=== PATIENT | female | born 1975 | race Hispanic/Latino ===

== ENCOUNTER 2019-12-05 13:41 | Emergency (ER) | payer OTHER ==
--- NOTE | 2019-12-05 14:35 | RAD REPORT ---
EXAM DESCRIPTION: RAD - Chest Single View - 12/05/2019 2:27 pm CLINICAL HISTORY: CHEST PAIN TECHNIQUE: AP portable chest image was obtained 12/05/2019 2:27 pm . FINDINGS: Lungs are clear. Heart and vasculature are normal. No measurable pleural effusion and no p neumothorax. No acute bony abnormality seen. No acute aortic findings suspected. IMPRESSION: No acute cardiopulmonary process.
[2019-12-05 14:56] LABS: Absolute Lymphocytes (CBC) 1.9 K/uL (0.7-4.9); Basophils % 0.4 % (0-1.3); Hematocrit 37.4 % (36.0-45.0); Lymphocytes % 21.4 % (15.3-44.8); MPV 8.5 fL (7.6-11.3); RBC Red Blood Cell Count 4.29 M/uL (3.86-4.86)
[2019-12-05 14:57] LABS: Protime INR 1.07
[2019-12-05 15:17] LABS: ALT/SGPT 33 U/L (12-78); AST/SGOT 9 U/L (15-37); Albumin 3.4 g/dL (3.4-5.0); Alkaline Phosphatase 95 U/L (45-117); BUN Blood Urea Nitrogen 15 mg/dL (7-18); Bicarbonate 29 mmol/L (21-32); Bilirubin Direct < 0.1 mg/dL (0-0.2); Bilirubin Total 0.3 mg/dL (0.2-1.0); Glucose Level 109 mg/dL (74-106); NT PRO-BNP 48 pg/mL (<125); Potassium 3.5 mmol/L (3.5-5.1); Protein, Total 7.8 g/dL (6.4-8.2); Sodium Level 143 mmol/L (136-145); Troponin (Emerg Dept Use Only) < 0.02 ng/mL (0.0-0.045)
[2019-12-05] MEDS ORDERED: ASPIRIN 81 MG CHEWABLE TABLET ONE (15:17)
[2019-12-05] MEDS ORDERED: LORazepam 2 MG/ML VIAL ONE (15:19)
--- NOTE | 2019-12-05 18:02 | ER ---
Nurse's Notes [facility] Name: Mag Donald Age: 44 yrs Sex: Female : 1975 Arrival Date: 12/05/2019 Time: 13:44 Bed 14 Private MD: Diagnosis: Other chest pain Presentation: 12/04 13:46 Chief complaint: Patient states: Chest pressure, anxiety and excessive crying that ss began yesterday evening. Pt recently from her boyfriend and is down here visiting her daughter who just had a baby and she is supposed to go back home tomorrow. Coronavirus screen: The patient has NOT traveled to a country currently being monitored by the [facility] within the last 14 days. Proceed with normal triage procedures. Ebola Screen: Patient denies exposure to infectious person. Patient denies travel to an Ebola-affected area in the 21 days before illness onset. Initial Sepsis Screen: Does the patient meet any 2 criteria? No. Patient's initial sepsis screen is negative. Does the patient have a suspected source of infection? No. Patient's initial sepsis screen is negative. Risk Assessment: Do you want to hurt yourself or someone else? Patient reports no desire to harm self or others. 13:46 Method Of Arrival: Ambulatory ss 13:46 Acuity: CHRIS 3 ss Historical: - Allergies: 14:29 No Known Allergies; ss - Home Meds: 14:29 Lexapro [Active]; BP medication [Active]; ss - PMHx: 14:29 Anxiety; Depression; Hypertension; ss - PSHx: 14:29 ; elbow; Hysterectomy; Cholecystectomy; ss - Immunization history:: Adult Immunizations up to date. - Social history:: Smoking status: Patient denies any tobacco usage or history of. Screenin:31 Abuse screen: Denies threats or abuse. Denies injuries from another. Nutritional ss screening: No deficits noted. Tuberculosis screening: Never had TB. Fall Risk None identified. Assessment: 13:46 General: Appears distressed, uncomfortable, Behavior is cooperative, anxious, crying, ss Denies fever, feeling ill, fatigue, chills. Pain: Complains of pain in chest Pain does not radiate. Pain currently is 7 out of 10 on a pain scale. Quality of pain is described as pressure, Pain began yesterday evening comes and goes in severity Is continuous, Aggravated by anxiety. Neuro: Level of Consciousness is awake, alert, obeys commands, Oriented to person, place, time, situation, Speech is normal, Facial symmetry appears normal. Cardiovascular: Pulses are palpable in right radial artery and left radial artery. Respiratory: Breath sounds are clear bilaterally. Denies cough, shortness of breath pain with respiration, pain with cough, pain with movement. GI: Patient currently denies abdominal pain, diarrhea, nausea, vomiting. : No signs and/or symptoms were reported regarding the genitourinary system. EENT: Nares are clear Oral mucosa is moist. Derm: Skin is intact, is healthy with good turgor, is fragile, Skin is pink, warm \T\ dry. normal. 15:00 Reassessment: Patient appears in no apparent distress at this time. Pt is resting at this time, eyes closed, respirations remain even and unlabored. 16:00 Reassessment: Patient appears in no apparent distress at this time. Patient and/or ss family updated on plan of care and expected duration. Pain level reassessed. Patient is alert, oriented x 3, equal unlabored respirations, skin warm/dry/pink. Patient states feeling better. Patient states symptoms have improved. Vital Signs: 13:46 BP 130 / 81; Pulse 102; Resp 22; Temp 97.6(TE); Pulse Ox 98% on R/A; Weight 97.52 kg; Height 5 ft. 2 in. (157.48 cm); Pain 6/10; 15:05 BP 115 / 78; Pulse 82; Resp 17; Temp 97.8(TE); Pulse Ox 90% on R/A; 5 15:49 BP 109 / 68 LA; Pulse 87; Resp 14; Pulse Ox 93% on R/A; ss 15:49 BP 118 / 78 LA; Pulse 83; ss 18:18 BP 129 / 87; Pulse 84; Resp 16; Pulse Ox 95% on R/A; Pain 3/10; ss 13:46 Body Mass Index 39.32 (97.52 kg, 157.48 cm) ED Course: 13:44 Patient arrived in ED. mr 13:46 No provider procedures requiring assistance completed. 13:48 Lee Bates PA is PHCP. cp 13:48 Jose Abreu MD is Attending Physician. cp 14:14 Eliza Jeffries, RN is Primary Nurse. ss 14:27 Triage completed. ss 14:28 XRAY Chest (1 view) In Process Unspecified. EDMS 14:29 Arm band placed on right wrist. ss 14:30 Inserted saline lock: 22 gauge in right antecubital area, using aseptic technique. ss Blood collected. 14:31 Patient has correct armband on for positive identification. Placed in gown. Bed in low ss position. Call light in reach. Side rails up X 1. embalmer assistant on. Pulse ox on. NIBP on. 14:31 Patient maintains SpO2 saturation greater than 95% on room air. ss 15:04 EKG done, by ED staff, reviewed by Jose Abreu MD. tc 18:29 IV discontinued, intact, bleeding controlled, No redness/swelling at site. Pressure ss dressing applied. Administered Medications: 15:18 Drug: Aspirin Chewable Tablet 324 mg Route: PO; ss 17:53 Follow up: Response: No adverse reaction ss 15:19 Drug: Ativan 0.5 mg Route: IVP; Site: right antecubital; ss 17:53 Follow up: Response: No adverse reaction; Anxiety decreased ss Outcome: 18:01 Discharge ordered by MD. cp 18:29 Discharged to home ambulatory, with family. ss 18:29 Condition: improved 18:29 Discharge instructions given to patient, family, Instructed on discharge instructions, follow up and referral plans. medication usage, Demonstrated understanding of instructions, follow-up care, medications, Prescriptions given X 1. 18:29 Patient left the ED. ss Signatures: Dispatcher [employer] [facility] Terrie Najera mr Eliza Jeffries, RN RN Brittney Gold, comb winder EKG Ttc Lee Bates PA PA cp Martinez, Maria 5
--- NOTE | 2019-12-05 18:03 | EDPHYS ---
Physician Documentation [facility] Name: Mag Donald Age: 44 yrs Sex: Female : 1975 Arrival Date: 12/05/2019 Time: 13:44 Bed 14 Private MD: ED Physician Jose Abreu HPI: 12/04 13:55 This 44 yrs old Female presents to ER via Ambulatory with complaints of Chest cp Pain. 13:55 The patient or guardian reports chest pain that is located primarily in the anterior cp chest wall, left. 13:55 Onset: last night. The pain does not radiate. cp 13:55 The chest pain is described as a pressure. cp 13:55 Duration: The patient or guardian reports a single episode, that is still ongoing, and cp unchanged. Historical: - Allergies: 14:29 No Known Allergies; ss - Home Meds: 14:29 Lexapro [Active]; BP medication [Active]; ss - PMHx: 14:29 Anxiety; Depression; Hypertension; ss - PSHx: 14:29 ; elbow; Hysterectomy; Cholecystectomy; ss - Immunization history:: Adult Immunizations up to date. - Social history:: Smoking status: Patient denies any tobacco usage or history of. ROS: 14:00 Constitutional: Negative for body aches, chills, fever, poor PO intake. cp 14:00 Eyes: Negative for injury, pain, redness, and discharge. cp 14:00 ENT: Negative for drainage from ear(s), ear pain, sore throat, difficulty swallowing, difficulty handling secretions. 14:00 Cardiovascular: Positive for chest pain, of the left upper chest, Negative for edema, palpitations. 14:00 Respiratory: Negative for cough, shortness of breath, wheezing. 14:00 Abdomen/GI: Negative for abdominal pain, nausea, vomiting, and diarrhea, black/tarry stool, rectal bleeding. 14:00 Back: Negative for radiated pain. 14:00 Skin: Negative for rash. 14:00 Neuro: Negative for altered mental status, dizziness, headache, syncope, weakness. 14:00 All other systems are negative. Exam: 14:10 Constitutional: The patient appears in no acute distress, alert, awake, cp non-diaphoretic, non-toxic, well developed, well nourished. 14:10 Head/Face: Normocephalic, atraumatic. cp 15:05 ECG was reviewed by the Attending Physician. cp 17:54 ECG was reviewed by the Attending Physician. cp Vital Signs: 13:46 BP 130 / 81; Pulse 102; Resp 22; Temp 97.6(TE); Pulse Ox 98% on R/A; Weight 97.52 kg; ss Height 5 ft. 2 in. (157.48 cm); Pain 6/10; 15:05 BP 115 / 78; Pulse 82; Resp 17; Temp 97.8(TE); Pulse Ox 90% on R/A; mh5 15:49 BP 109 / 68 LA; Pulse 87; Resp 14; Pulse Ox 93% on R/A; ss 15:49 BP 118 / 78 LA; Pulse 83; ss 18:18 BP 129 / 87; Pulse 84; Resp 16; Pulse Ox 95% on R/A; Pain 3/10; ss 13:46 Body Mass Index 39.32 (97.52 kg, 157.48 cm) ss MDM: 13:58 Patient medically screened. cp 18:01 The patient was given aspirin in the Emergency Department. cp 18:01 Data reviewed: vital signs, nurses notes, lab test result(s), EKG, radiologic studies, cp plain films, and as a result, I will discharge patient. Test interpretation: by ED physician or midlevel provider: ECG. 12/04 13:49 Order name: Basic Metabolic Panel; Complete Time: 15:19 cp 12/04 15:20 Interpretation: Normal except: CL 109; GLUC 109; GFR 65. cp 12/04 13:49 Order name: CBC with Diff; Complete Time: 15:19 cp 12/04 13:49 Order name: LFT's; Complete Time: 15:19 cp 12/04 15:20 Interpretation: AST 9; GLOB 4.4; A/G 0.8. cp 12/04 13:49 Order name: Magnesium; Complete Time: 15:19 cp 12/04 13:49 Order name: NT PRO-BNP; Complete Time: 15:19 cp 12/04 13:49 Order name: PT-INR; Complete Time: 15:19 cp 12/04 15:20 Interpretation: Abnormal: PT 12.6. cp 12/04 13:49 Order name: Troponin (emerg Dept Use Only); Complete Time: 15:19 cp 12/04 15:20 Interpretation: Within normal limits: TROPED < 0.02. cp 12/04 13:49 Order name: XRAY Chest (1 view); Complete Time: 15:19 cp 12/04 13:49 Order name: EKG; Complete Time: 13:50 cp 12/04 13:49 Order name: Cardiac monitoring; Complete Time: 14:47 cp 12/04 17:21 Order name: EKG; Complete Time: 17:21 cp 12/04 17:21 Order name: Troponin I; Complete Time: 18:11 cp 12/04 13:49 Order name: EKG - Nurse/Tech; Complete Time: 14:47 cp 12/04 13:49 Order name: IV Saline Lock; Complete Time: 14:47 cp 12/04 13:49 Order name: Labs collected and sent; Complete Time: 14:48 cp 12/04 13:49 Order name: O2 Per Protocol; Complete Time: 14:48 cp 12/04 13:49 Order name: O2 Sat Monitoring; Complete Time: 14:49 cp 12/04 15:23 Order name: Blood Pressure Recheck: bilateral upper extremities; Complete Time: 15:45 cp 12/04 17:21 Order name: EKG - Nurse/Tech; Complete Time: 17:53 cp EC:05 Rate is 87 beats/min. Rhythm is regular. KS interval is normal. QRS interval is normal. cp QT interval is normal. T waves are Flattened in lead aVL. Interpreted by me. Reviewed by me. 17:54 Rate is 90 beats/min. Rhythm is regular. KS interval is normal. QRS interval is normal. cp QT interval is normal. Interpreted by me. Reviewed by me. Administered Medications: 15:18 Drug: Aspirin Chewable Tablet 324 mg Route: PO; ss 17:53 Follow up: Response: No adverse reaction ss 15:19 Drug: Ativan 0.5 mg Route: IVP; Site: right antecubital; ss 17:53 Follow up: Response: No adverse reaction; Anxiety decreased ss Disposition: 19:40 Co-signature as Attending Physician, Jose Abreu MD I agree with the assessment and kdr plan of care. Disposition: 12/05/19 18:01 Discharged to Home. Impression: Other chest pain. - Condition is Stable. - Discharge Instructions: Nonspecific Chest Pain, Aspirin and Your Heart, Generalized Anxiety Disorder. - Prescriptions for Ativan 1 mg Oral Tablet - take 1 tablet by ORAL route every 8 hours As needed; 20 tablet. - Medication Reconciliation Form, Thank You Letter, Antibiotic Education, Prescription Opioid Use form. - Follow up: Private Physician; When: 2 - 3 days; Reason: Recheck today's complaints. - Problem is new. - Symptoms have improved. Signatures: Dispatcher [employer] EDDE Naomi Carter, [place]-C GOVERNMENT TEACHER-Jose Martin MD MD kdr Smirch, Shelby, RN RN ss Lee Bates PA PA cp Corrections: (The following items were deleted from the chart) 18:29 18:01 12/05/2019 18:01 Discharged to Home. Impression: Other chest pain. Condition is ss Stable. Forms are Medication Reconciliation Form, Thank You Letter, Antibiotic Education, Prescription Opioid Use. Follow up: Private Physician; When: 2 - 3 days; Reason: Recheck today's complaints. Problem is new. Symptoms have improved. cp
[2019-12-05 18:46] VITALS: TEMP 97.8
[2019-12-05 18:48] VITALS: BP 129/87; O2SAT 95
--- NOTE | 2019-12-06 08:29 | EKG ---
Test Date: 2019-12-05 Test Time: 14:50:58 Wool Dyer: AGUSTÍN MEASUREMENT RESULTS: Intervals: Rate: 87 OH: 130 QRSD: 88 QT: 366 QTc: 440 [place]: P: 46 OH: 130 QRS: 10 T: 57 INTERPRETIVE STATEMENTS: Normal sinus rhythm Normal ECG No previous ECG available for comparison Electronically Signed On 12-06-19 08:27:54 CDT by Baldomero Chu
--- NOTE | 2019-12-07 09:15 | EKG ---
Test Date: 2019-12-05 Test Time: 17:52:31 Earth Science Teacher: BETY MEASUREMENT RESULTS: Intervals: Rate: 90 AL: 136 QRSD: 82 QT: 362 QTc: 442 [place]: P: 41 AL: 136 QRS: 11 T: 51 INTERPRETIVE STATEMENTS: Normal sinus rhythm Normal ECG Compared to ECG 12/05/2019 14:50:58 No significant changes Electronically Signed On 12-07-19 09:13:37 CDT by Baldomero Chu
== END 2019-12-05 18:29 | disposition home or self-care (01) ==
LOC: EDSEX 13:41 → ER 13:41
DX: R07.89 Other chest pain (principal); I10 Essential (primary) hypertension; F34.1 Dysthymic disorder
CPT/HCPCS: 36415; 71045; 80048; 80076; 83735; 83880; 84484; 85025; 85610; 93005; 96374; 99285

== ENCOUNTER 2024-03-19 20:42 | Emergency (ER) | payer OTHER ==
[2024-03-19] MEDS ORDERED: KETOROLAC 30 MG/ML INJ ONE (21:02)
[2024-03-19] MEDS ORDERED: ONDANSETRON 4 MG/2 ML VIAL ONE (21:02)
[2024-03-19 21:03] LABS: Absolute Eosinophils 0.1 K/uL (0-0.5); Absolute Lymphocytes (CBC) 2.3 K/uL (0.7-4.9); Absolute Monocytes 0.4 K/uL (0.1-1.3); Absolute Neutrophil 4.5 K/uL (1.8-8.0); Basophils % 0.5 % (0-1.3); Eosinophils % 1.6 % (0-4.4); Hemoglobin 12.4 g/dL (12.0-15.0); Lymphocytes % 30.9 % (15.3-44.8); MCH 30.4 pg (27.0-35.0); MCHC 34.4 g/dL (32.0-36.0); MCV 88.3 fL (80-100); MPV 8.1 fL (7.6-11.3); Monocytes % 5.6 % (3.3-12.3); Neutrophils % 61.4 % (41.7-73.7); Nucleated Red Blood Cells % 0.1 % (0-0); Platelets 265 thou/uL (152-406); RBC Red Blood Cell Count 4.08 M/uL (3.86-4.86); Red Cell Distribution Width 13.7 % (12.1-15.2)
[2024-03-19] MEDS ORDERED: MORPHINE 4 MG/ML SYR ONE (21:03)
[2024-03-19 21:11] LABS: PT Prothrombin Time 10.7 SECONDS (9.4-12.5); PTT, Activated Partial Thromb 33.8 SECONDS (24.3-36.9); Protime INR 0.97
[2024-03-19 21:22] LABS: ALT/SGPT 21 U/L (13-56); Albumin 3.5 g/dL (3.4-5.0); Albumin/Globulin Ratio 0.8 (1.1-1.8); Alkaline Phosphatase 110 U/L (45-117); Anion Gap 6.8 mEq/L (5.0-15.0); BUN Blood Urea Nitrogen 17 mg/dL (7-18); Bicarbonate 29 mEq/L (21-32); Bilirubin Total 0.4 mg/dL (0.2-1.0); Globulin 4.3 g/dL (2.3-3.5); Glomerular Filtration Rate 110 ml/min (=/>90); Glucose Level 96 mg/dL (74-106); Magnesium 2.3 mg/dL (1.6-2.4); Potassium 3.8 mEq/L (3.5-5.1); Protein, Total 7.8 g/dL (6.4-8.2); Sodium Level 141 mEq/L (136-145)
[2024-03-19 21:26] LABS: AST/SGOT < 10 U/L (15-37); Bilirubin Direct < 0.2 mg/dL (0-0.2); Bilirubin Indirect, Calculated 0.2 mg/dL (0.2-0.8)
--- NOTE | 2024-03-19 21:57 | RAD REPORT ---
EXAM DESCRIPTION: CT - Head Brain Wo Cont - 03/19/2024 9:44 pm CLINICAL HISTORY: HEADACHE COMPARISON: No comparisons TECHNIQUE: All CT scans are performed using dose optimization technique as appropriate and may inclu de automated exposure control or mA/KV adjustment according to patient size. FINDINGS: No intracranial hemorrhage, hydrocephalus or extra-axial fluid collection.No areas of brai n edema or evidence of midline shift. The paranasal sinuses and mastoids are clear. The calvarium is intact. IMPRESSION: No acute intracranial abnormality.
--- NOTE | 2024-03-19 22:01 | ER ---
Nurse's Notes [facility] Name: Mag Donald Age: 48 yrs Sex: Female : 1975 Arrival Date: 03/19/2024 Time: 20:42 Bed 15 Private MD: Diagnosis: Headache, epistaxis, hypertension resolved Presentation: 03/19 21:07 Chief complaint: Patient states: Had 2 nosebleeds today. EMS states: Hypertension and nj1 headache. 21:07 Coronavirus screen: Vaccine status: Patient reports receiving the 2nd dose of the covid nj1 vaccine. Ebola Screen: Patient denies travel to an Ebola-affected area in the 21 days before illness onset. Initial Sepsis Screen: Does the patient meet any 2 criteria? No. Patient's initial sepsis screen is negative. Does the patient have a suspected source of infection? No. Patient's initial sepsis screen is negative. Risk Assessment: Do you want to hurt yourself or someone else? Patient reports no desire to harm self or others. Onset of symptoms was February 2024. 21:07 Method Of Arrival: EMS: [facility] 21:07 Acuity: CHRIS 3 nj1 Historical: - Allergies: 21:36 No Known Allergies; nj1 - PMHx: 21:36 Anxiety; Depression; Hypertension; Diabetes mellitus; nj1 - Immunization history:: Client reports receiving the 2nd dose of the Covid vaccine. - Infectious Disease History:: Denies. - Social history:: Smoking status: Patient denies any tobacco usage or history of. Screenin:10 [facility] ED Fall Risk Assessment (Adult) History of falling in the last 3 months, nj1 including since admission No falls in past 3 months (0 pts) Confusion or Disorientation No (0 pts) Intoxicated or Sedated No (0 pts) Impaired Gait No (0 pts) Mobility Assist Device Used No (0 pt) Altered Elimination No (0 pt) Score/Fall Risk Level 0 - 2 = Low Risk Oriented to surroundings, Maintained a safe environment, Hourly rounding (assess needs \T\ fall precautionary measures) done. 21:10 Abuse screen: Denies threats or abuse. Denies injuries from another. Nutritional nj1 screening: No deficits noted. Tuberculosis screening: No symptoms or risk factors identified. Assessment: 21:10 General: Appears in no apparent distress. uncomfortable, Behavior is calm, cooperative, nj1 appropriate for age. 21:10 Pain: Complains of pain in head Pain currently is 8 out of 10 on a pain scale. Neuro: nj1 Level of Consciousness is awake, alert, obeys commands, Oriented to person, place, time, situation. Neuro: Reports headache. Cardiovascular: Patient's skin is warm and dry. Respiratory: Airway is patent Respiratory effort is even, unlabored. Vital Signs: 21:07 BP 144 / 89; Pulse 67; Resp 18; Pulse Ox 99% on R/A; Weight 77.11 kg; Height 5 ft. 2 nj1 in. ; Pain 8/10; 21:37 BP 135 / 76; Pulse 63; Resp 13; Pulse Ox 98% on R/A; nj1 22:24 BP 119 / 82; Pulse 61; Resp 13; Temp 98.4; Pulse Ox 99% ; Pain 0/10; jj7 21:07 Body Mass Index 31.09 (77.11 kg, 157.48 cm) nj1 21:07 Pain Scale: Adult nj1 22:24 Pain Scale: Adult j7 ED Course: 20:44 Patient arrived in ED. sp3 20:44 Sean Yi MD is Attending Physician. sp3 20:51 Joellen Schaefer, PAUL is Primary Nurse. nj1 21:10 Patient has correct armband on for positive identification. Bed in low position. Call nj1 light in reach. Adult w/ patient. 21:10 Provided Education on: call light, fall precautions. nj1 21:36 Triage completed. nj1 21:36 Arm band placed on. nj1 21:42 Inserted saline lock: 20 gauge in right antecubital area, using aseptic technique. kj2 21:45 CT Head Brain wo Cont In Process Unspecified. EDMS 22:24 No provider procedures requiring assistance completed. IV discontinued, intact, jj7 bleeding controlled, No redness/swelling at site. Pressure dressing applied. Administered Medications: 21:07 Drug: Ketorolac IVP 15 mg IVP once Route: IVP; Site: right antecubital; kj2 22:28 Follow up: Response: Marked relief of symptoms; Pain is decreased jj7 21:07 Drug: morphine IVP or IV 2 mg IVP once over 4 mins Route: IVP; Infused Over: 4 mins; kj2 Site: right antecubital; 22:28 Follow up: Response: Marked relief of symptoms; Pain is decreased jj7 21:07 Drug: Ondansetron IVP 4 mg IVP once; over 2 minutes Route: IVP; Site: right antecubital;kj2 22:28 Follow up: Response: Marked relief of symptoms jj7 Medication: 22:24 VIS not applicable for this client. jj7 Outcome: 22:00 Discharge ordered by MD. gill 22:24 Discharged to home ambulatory, with family, jj7 22:24 Condition: improved 22:24 Discharge instructions given to patient, Instructed on discharge instructions, follow up and referral plans. Demonstrated understanding of instructions, follow-up care, 22:29 Patient left the ED. jj7 Signatures: Dispatcher [employer] EDMS Sean Yi MD MD sp3 Kandi Daly, RN RN jj7 Joellen Schaefer RN RN nj1 Jacqueline Gaona RN RN kj2
--- NOTE | 2024-03-19 22:01 | EDPHYS ---
Physician Documentation [facility] Name: Mag Donald Age: 48 yrs Sex: Female : 1975 Arrival Date: 03/19/2024 Time: 20:42 Bed 15 Private MD: ED Physician Sean Yi HPI: 03/19 20:53 This 48 yrs old Female presents to ER via Unassigned with complaints of sp3 headache, high blood pressure, nose bleed. 20:53 48-year-old female with a history of hypertension, diabetes, iron deficiency anemia now sp3 presents with chief complaint headache mild left-sided epistaxis and mild high blood pressure for EMS. Patient states symptoms started over the last 1 to 2 days. She denies any trauma, sudden onset of headache, thunderclap headache, fever, vomiting, neck pain, chest pain, shortness of breath, back pain, abdominal pain, vomiting, diarrhea, rash, syncope, near syncope, focal neurological deficit, known sick contacts, prolonged immobilization, prior DVT or PE, or any other signs or symptoms on ROS at this time.. Historical: - Allergies: 21:36 No Known Allergies; nj1 - PMHx: 21:36 Anxiety; Depression; Hypertension; Diabetes mellitus; nj1 - Immunization history:: Client reports receiving the 2nd dose of the Covid vaccine. - Infectious Disease History:: Denies. - Social history:: Smoking status: Patient denies any tobacco usage or history of. ROS: 20:55 Constitutional: Negative for fever, chills, and weight loss, Eyes: Negative for injury, sp3 pain, redness, and discharge, Neck: Negative for injury, pain, and swelling, Cardiovascular: Negative for chest pain, palpitations, and edema, Respiratory: Negative for shortness of breath, cough, wheezing, and pleuritic chest pain, Abdomen/GI: Negative for abdominal pain, nausea, vomiting, diarrhea, and constipation, Back: Negative for injury and pain, MS/Extremity: Negative for injury and deformity, Skin: Negative for injury, rash, and discoloration, Neuro: Negative for headache, weakness, numbness, tingling, and seizure, Psych: Negative for depression, anxiety, suicide ideation, homicidal ideation, and hallucinations, Allergy/Immunology: Negative for hives, rash, and allergies, Endocrine: Negative for neck swelling, polydipsia, polyuria, polyphagia, and marked weight changes, Hematologic/Lymphatic: Negative for swollen nodes, abnormal bleeding, and unusual bruising, 20:55 All other systems are negative, Exam: 20:55 Constitutional: This is a well developed, well nourished patient who is awake, alert, sp3 and in no acute distress. Head/Face: Normocephalic, atraumatic. Eyes: Pupils equal round and reactive to light, extra-ocular motions intact. Lids and lashes normal. Conjunctiva and sclera are non-icteric and not injected. Cornea within normal limits. Periorbital areas with no swelling, redness, or edema. Neck: Trachea midline, no thyromegaly or masses palpated, and no cervical lymphadenopathy. Supple, full range of motion without nuchal rigidity, or vertebral point tenderness. No Meningismus. Chest/axilla: Normal chest wall appearance and motion. Nontender with no deformity. No lesions are appreciated. Cardiovascular: Regular rate and rhythm with a normal S1 and S2. No gallops, murmurs, or rubs. Normal PMI, no JVD. No pulse deficits. Respiratory: Lungs have equal breath sounds bilaterally, clear to auscultation and percussion. No rales, rhonchi or wheezes noted. No increased work of breathing, no retractions or nasal flaring. Abdomen/GI: Soft, non-tender, with normal bowel sounds. No distension or tympany. No guarding or rebound. No evidence of tenderness throughout. Back: No spinal tenderness. No costovertebral tenderness. Full range of motion. Skin: Warm, dry with normal turgor. Normal color with no rashes, no lesions, and no evidence of cellulitis. MS/ Extremity: Pulses equal, no cyanosis. Neurovascular intact. Full, normal range of motion. Neuro: Awake and alert, GCS 15, oriented to person, place, time, and situation. Cranial nerves II-XII grossly intact. Motor strength 5/5 in all extremities. Sensory grossly intact. Cerebellar exam normal. Normal gait. Psych: Awake, alert, with orientation to person, place and time. Behavior, mood, and affect are within normal limits. 20:55 ENT: Mild freshly clotted blood on the left nare. No active bleeding noted. No septal hematoma or other defect.. Vital Signs: 21:07 BP 144 / 89; Pulse 67; Resp 18; Pulse Ox 99% on R/A; Weight 77.11 kg; Height 5 ft. 2 nj1 in. ; Pain 8/10; 21:37 BP 135 / 76; Pulse 63; Resp 13; Pulse Ox 98% on R/A; nj1 22:24 BP 119 / 82; Pulse 61; Resp 13; Temp 98.4; Pulse Ox 99% ; Pain 0/10; jj7 21:07 Body Mass Index 31.09 (77.11 kg, 157.48 cm) nj1 21:07 Pain Scale: Adult nj1 22:24 Pain Scale: Adult jj7 MDM: 20:44 Patient medically screened. sp3 20:55 Data reviewed: vital signs, nurses notes, EMS record, old medical records, lab test sp3 result(s), radiologic studies. ED course: 48-year-old female with headache, mild hypertension and resolved left-sided epistaxis. Differential diagnosis includes hypertension induced headache, nonspecific headache, intracranial hemorrhage, among others. I am not highly suspicious for meningitis, infectious etiology, vascular compromise including arterial dissection and/or aneurysm, sepsis, shock, acute coronary syndrome, or any other critical process at this time. Workup will include CT scan of the head and general laboratory values including coagulation profile. Treatment will include ketorolac, morphine and Zofran IV for symptomatic control. If workup negative, we will safely discharge patient home with PCP follow-up. Will add blood pressure controlled meds if indicated based on ongoing monitoring.. 21:59 ED course: Workup negative including CT head. Blood pressure now 135/76. No recurrent sp3 nosebleed noted. Blood work is all normal. No endorgan damage noted. Headache is also improved. We will safely discharge patient home with PCP follow-up at this time.. 03/19 20:45 Order name: Basic Metabolic Panel; Complete Time: 21:30 sp3 03/19 20:45 Order name: CBC with Diff; Complete Time: 21:30 sp3 03/19 20:45 Order name: Hepatic Function; Complete Time: 21:30 sp3 03/19 20:45 Order name: Magnesium; Complete Time: 21:30 sp3 03/19 20:45 Order name: Protime (+inr); Complete Time: 21:30 sp3 03/19 20:45 Order name: Ptt, Activated; Complete Time: 21:30 3 03/19 20:45 Order name: CT Head Brain wo Cont; Complete Time: 21:59 3 03/19 20:45 Order name: Cardiac monitoring; Complete Time: 21:38 3 03/19 20:45 Order name: EKG - Nurse/Tech; Complete Time: 21:38 3 03/19 20:45 Order name: IV Saline Lock; Complete Time: 21:38 3 03/19 20:45 Order name: Labs collected and sent; Complete Time: 21:38 3 03/19 20:45 Order name: NPO; Complete Time: 21:54 3 03/19 20:45 Order name: O2 Sat Monitoring; Complete Time: 21:38 3 03/19 21:30 Order name: Vital Signs; Complete Time: 21:38 3 03/19 21:30 Order name: Blood Pressure Recheck; Complete Time: 21:38 3 Administered Medications: 21:07 Drug: Ketorolac IVP 15 mg IVP once Route: IVP; Site: right antecubital; kj2 22:28 Follow up: Response: Marked relief of symptoms; Pain is decreased jj7 21:07 Drug: morphine IVP or IV 2 mg IVP once over 4 mins Route: IVP; Infused Over: 4 mins; kj2 Site: right antecubital; 22:28 Follow up: Response: Marked relief of symptoms; Pain is decreased jj7 21:07 Drug: Ondansetron IVP 4 mg IVP once; over 2 minutes Route: IVP; Site: right antecubital;kj2 22:28 Follow up: Response: Marked relief of symptoms jj7 Disposition Summary: 03/19/24 22:00 Discharge Ordered Notes: Location: Home sp3 Condition: Stable sp3 Diagnosis - Headache, epistaxis, hypertension resolved sp3 Followup: sp3 - With: Private Physician - When: Upon discharge from the Emergency Department - Reason: Continuance of care Discharge Instructions: - Discharge Summary Sheet sp3 - General Headache Without Cause sp3 Forms: - Medication Reconciliation Form sp3 - Antibiotic Education sp3 - Prescription Opioid Use sp3 - Patient Portal Instructions sp3 - Leadership Thank You Letter sp3 Signatures: Dispatcher [employer] Sean Thurston MD MD sp3 Joellen Schaefer RN RN nj1 Jacqueline Gaona, RN RN kj2 Kandi Daly RN jj7 Corrections: (The following items were deleted from the chart) 20:46 20:46 Head Brain Wo [id number] ordered. EDMS EDMS
[2024-03-19 22:45] VITALS: BP 119/82; TEMP 98.4; O2SAT 99
--- NOTE | 2024-03-20 14:07 | EKG ---
Test Date: 2024-03-19 Test Time: 21:27:32 [employer] Plant Operative: SEGUNDO MEASUREMENT RESULTS: Intervals: Rate: 63 AL: 136 QRSD: 84 QT: 450 QTc: 460 [place]: P: 34 AL: 136 QRS: 16 T: 27 INTERPRETIVE STATEMENTS: Normal sinus rhythm Normal ECG Compared to ECG 12/05/2019 17:52:31 No significant changes Electronically Signed On 03-20-24 14:06:20 CDT by Ab Cline
== END 2024-03-19 22:29 | disposition home or self-care (01) ==
LOC: ER 20:42
DX: R51.9 Headache, unspecified (principal); R04.0 Epistaxis; E11.9 Type 2 diabetes mellitus without complications; I10 Essential (primary) hypertension
CPT/HCPCS: 85025; 80048; 36415; 83735; 85610; 80076; 85730; 70450; J2405; 93005; 96374; 96375; 99284